=== PATIENT | male | born 1950 | race Caucasian/White ===

== ENCOUNTER 2016-11-24 09:33 | Inpatient (IN) | payer OTHER ==
[~2016-11-24] VITALS: Ht 180.3 cm; Wt 84.2 kg
[~2016-11-24 09:33] MED LIST: ASPI-621 PO; ATOR-2 PO; GLIP5TAB10 PO; LOSA50TA6 PO; METF500T4 PO; METO25TA35 PO; NITR0.4T28 SL; PRAS10TA4 PO; PRAV40TA2 PO
[2016-11-24] MEDS ORDERED: SODIUM CHLORIDE 0.9% 1,000 ML IV ONE (09:56)
[2016-11-24] MEDS ORDERED: NITROGLYCERIN SINGLE TAB 0.4 MG SL PRN (10:00)
[2016-11-24] MEDS ORDERED: SODIUM CHLORIDE FLUSH 10ML SYR IVF ONE (10:00)
[2016-11-24] MEDS ORDERED: ASPIRIN 81 MG TABLET CHEW PO ONE (10:00)
[2016-11-24 10:09] LABS: HEMATOCRIT 40.1 % (39.2-51.8); HEMOGLOBIN 13.6 g/dL (13.7-18.0); WHITE BLOOD COUNT 12.4 x10^3/uL (3.4-10)
[2016-11-24 10:22] LABS: ASPARTATE AMINO TRANSFERASE 8 U/L (15-37); BLOOD UREA NITROGEN 18 mg/dL (7-18)
[2016-11-24 10:28] LABS: IS PT STATUS REG ER OR PRE ER? YES
[2016-11-24] MEDS ORDERED: ASPIRIN 81 MG TABLET CHEW ONE (10:41)
[2016-11-24] MEDS ORDERED: SODIUM CHLORIDE 0.9% 1,000ML IVBOLUS ONE (11:00)
[2016-11-24] MEDS ORDERED: OMNIPAQUE 350 MG/ML, 100ML BOTTLE ONE (11:00)
[2016-11-24] MEDS ORDERED: LOSA50TA6 PO (11:36)
[2016-11-24] MEDS ORDERED: SODIUM CHLORIDE FLUSH 10ML SYR IVF PRN (12:30)
[2016-11-24] MEDS ORDERED: ACETAMINOPHEN 325 MG TABLET PO PRN (13:00)
[2016-11-24] MEDS ORDERED: NITROGLYCERIN 0.4 MG/SPRAY SL PRN (13:00)
[2016-11-24] MEDS ORDERED: ASPIRIN 325 MG TABLET EC PO ONE (13:00)
[2016-11-24] MEDS ORDERED: ONDANSETRON 2MG/ML, 2ML IVP PRN (13:00)
[2016-11-24] MEDS ORDERED: NITROGLYCERIN 0.4 MG BOTTLE (25 TABS) SL PRN ×2 (13:00)
[2016-11-24] MEDS ORDERED: morphine SULFATE 10 MG/ML, 1ML IV PRN (13:00)
[2016-11-24] MEDS ORDERED: ZOLPIDEM 5MG TABLET PO PRN (13:00)
[2016-11-24 13:25] VITALS: BP 111/67
[2016-11-24 14:07] LABS: IS PT STATUS REG ER OR PRE ER? NO
[2016-11-24] MEDS: INSULIN ASPART 100 UNITS/ML, PEN SQ-INSULIN SCH ×2 (16:00→21:00)
[2016-11-24] MEDS: SODIUM CHLORIDE 0.9% 1,000 ML IV SCH (17:51)
[2016-11-24 18:28] VITALS: BP 106/65
[2016-11-24] MEDS: INDOMETHACIN 50 MG CAPSULE PO SCH ×2 (18:29→21:26)
[2016-11-24] MEDS: METOPROLOL TARTRATE 25 MG TABLET PO SCH (18:29)
[2016-11-24 19:14] LABS: IS PT STATUS REG ER OR PRE ER? NO
[2016-11-24] MEDS ORDERED: ATORVASTATIN 80 MG TABLET PO SCH (21:00)
[2016-11-24] MEDS ORDERED: metFORMIN 500 MG TABLET PO SCH (21:00)
[2016-11-24] MEDS: SODIUM CHLORIDE FLUSH 10ML SYR IVF SCH (21:26)
[2016-11-25] MEDS: SODIUM CHLORIDE 0.9% 1,000 ML IV SCH (03:30)
[2016-11-25 03:45] VITALS: BP 103/63
[2016-11-25] MEDS ORDERED: ASPIRIN 325 MG TABLET EC PO SCH (06:00)
[2016-11-25] MEDS: METOPROLOL TARTRATE 25 MG TABLET PO SCH (06:27)
[2016-11-25] MEDS: INSULIN ASPART 100 UNITS/ML, PEN SQ-INSULIN SCH (07:00)
[2016-11-25 08:09] VITALS: BP 111/68
[2016-11-25] MEDS: SODIUM CHLORIDE FLUSH 10ML SYR IVF SCH (08:16)
[2016-11-25] MEDS: INDOMETHACIN 50 MG CAPSULE PO SCH (08:57)
[2016-11-25] MEDS ORDERED: LOSARTAN 50MG TABLET PO SCH (09:00)
[2016-11-25] MEDS ORDERED: PRASUGREL 10 MG TABLET PO SCH (09:00)
[2016-11-25] MEDS ORDERED: INDO50CA PO (09:21)
== END 2016-11-25 11:15 | disposition home or self-care (01) | DRG 313 ==
LOC: ED 11:13 → EDIP 12:20 → 5SO 13:31 → DCLOUNGE 11-25 11:00
PROVIDERS: ADMIT Family Medicine; ATTEND Family Medicine
DX: R07.89 Other chest pain (principal); I25.2 Old myocardial infarction; I30.9 Acute pericarditis, unspecified; D68.69 Other thrombophilia; E11.65 Type 2 diabetes mellitus with hyperglycemia; I10 Essential (primary) hypertension; E78.5 Hyperlipidemia, unspecified; I25.10 Atherosclerotic heart disease of native coronary artery without angina pectoris; I25.5 Ischemic cardiomyopathy; Z79.82 Long term (current) use of aspirin; Z87.891 Personal history of nicotine dependence; Z95.5 Presence of coronary angioplasty implant and graft
CPT/HCPCS: 36415; 71010; 71275; 80053; 80061; 82962; 83690; 83880; 84484; 85025; 85379; 93005; 93306; 96360; Q9967; J7030

== ENCOUNTER → 2017-08-07 | Outpatient (CLI) | payer OTHER ==
[~2017-08-07] MED LIST changes: +INDO50CA PO
== END | disposition home or self-care (01) ==
LOC: CVU 15:49
PROVIDERS: ATTEND Internal Medicine Cardiovascular Disease
DX: I10 Essential (primary) hypertension (principal); I25.2 Old myocardial infarction; E11.9 Type 2 diabetes mellitus without complications
CPT/HCPCS: 93306